=== PATIENT | male | born 1965 | race Caucasian/White ===

== ENCOUNTER 2020-01-10 21:17 | Emergency (ER) | payer OTHER ==
[~2020-01-10] VITALS: Ht 172.7 cm; Wt 104.3 kg
--- NOTE | 2020-01-10 21:17 | NUR ---
2115- PT BIBA FULL ARREST. TAKEN TO BED 10. DR. EATON AND RT AT BED.
--- NOTE | 2020-01-10 21:30 | NUR ---
PATIENT INTUBATED AT 8. RT, DR EATON, 3 RN AND 2 CONTRACT RECRUITER AT BEDSIDE DURING CODE. ACLS PROTOCOL FOLLOWED. SEE CODE SHEET. Addendum: 01/10/20 at 2350 by QIAN BIBA WITH REPORTS OF EMS DOING CPR FOR 40 MINUTES. STATES PATIENT WAS FOUND DOWN BY GREGIJacinta. LAST SEEN NORMAL 1 HOUR PRIOR TO EMS ARRIVAL. ACLS PROTOCOL FOLLWED. PATIENT INTUBATED BY DR. EATON AT 8. CODE TEAM, INCLUDING 3RNS, 2 EMT, 2 RT'S, AT BEDSIDE UPON ARRIVAL. SEE CODE SHEET FOR CODE DETAILS.
--- NOTE | 2020-01-10 21:31 | NUR ---
[facility] CPR IN PROGRESS. LAST SEEN NORMAL 1 HOUR PRIOR TO EMS ARRIVAL. 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 SEE CODE SHEET FOR CODE DETAILS. TIME OF CALLED AT 2130. NO HX OBTAINED OR REPORTED.
--- NOTE | 2020-01-10 21:31 | NUR ---
PT PRONOUNCED BY DR. EATON AT THIS TIME
--- NOTE | 2020-01-10 21:40 | NUR ---
CALLED BIOENGINEER TO REPORT PATIENT . WILL AWAIT CALL BACK FROM [facility] [employer].
--- NOTE | 2020-01-10 21:50 | NUR ---
SPOKE WITH [facility], REFERENCE NUMBER GIVEN #[id number]
--- NOTE | 2020-01-10 23:35 | NUR ---
SPOKE WITH TIARA FROM THE [facility] OFFICE. STATED HE WOULD CALL AND THEN CALL BACK.
--- NOTE | 2020-01-10 23:50 | NUR ---
SPOKE WITH TIARA SHAH. INFORMED THAT IT WOULD BE A [facility] CASE. NOTHING REMOVED OR ALTERED ON BODY PER INSTRUCTIONS. CASE #[id number]. ETA OF 45 MIN TO 1 HOUR FOR PICK OF PATIENT.
--- NOTE | 2020-01-11 00:11 | NUR ---
FAMILY AT BEDSIDE
--- NOTE | 2020-01-11 00:28 | NUR ---
CALLED [facility] TO INFORM ASSIGNED MD OF PASSING. [facility] AD[facility] THAT THEY ALREADY HAD NOTIFICATION IN THEIR SYSTEM.
--- NOTE | 2020-01-11 00:48 | NUR ---
RETURN CALL FROM [facility]. THEY REQUESTED PATIENT INFO. I PROVIDED INFO ON NEXT OF [facility] AND SUPERVISOR AIRPLANE FLIGHT ATTENDANT'S CASE NUMBER. 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
--- NOTE | 2020-01-11 00:58 | NUR ---
[facility] AT BEDSIDE
--- NOTE | 2020-01-11 01:04 | NUR ---
TRANSPORT FROM [facility] OFFICE ARRIVED. SIGNED TO RELEASE BODY TO SWIFT TENDER. PAPERWORK PROVIDED.
--- NOTE | 2020-01-11 01:11 | NUR ---
BODY TAKEN BY [facility] AT THIS TIME
== END 2020-01-10 21:31 | disposition expired ==
LOC: MED 21:17
DX: I46.9 Cardiac arrest, cause unspecified (principal)
CPT/HCPCS: 31500; 92950; 99285